=== PATIENT | male | born 1935 | race Caucasian/White ===

== ENCOUNTER 2018-07-02 10:41 | Observation (INO) | payer MEDICARE, OTHER ==
[~2018-07-02] VITALS: Ht 177.8 cm; Wt 82.6 kg
[~2018-07-02 10:41] MED LIST: CELE200 PO; DOCU-116 PO; DOFE250C PO; ESOM40CA54 PO; ESOM40SU PO; FISH1CAP50 PO; LOSA25TA2 PO; METO25TA3 PO; MULT-722 PO; NITR0.4T50 SL; SIMV40TA59 PO
[2018-07-02 11:25] LABS: BASOPHILS % (AUTO) 0.9 % (0.0-5.0); HEMATOCRIT 43.7 % (42-54); LYMPHOCYTES % (AUTO) 33.7 % (21.0-51.0); MEAN CORPUSCULAR HEMOGLOBIN 33.5 pg (27.0-33.0); MEAN CORPUSCULAR HGB CONC 34.6 g/dL (32.0-36.0); MEAN CORPUSCULAR VOLUME 96.7 fL (79-99); MONOCYTES % (AUTO) 9.7 % (3.0-13.0); NEUTROPHILS % (AUTO) 52.7 % (40.0-77.0); PLATELET COUNT (AUTO) 181 K/uL (130-400); RED BLOOD CELL COUNT(AUTO) 4.52 MIL/uL (4.50-6.20); RED CELL DISTRIBUTION WIDTH 13.5 % (11.0-15.5); WHITE BLOOD COUNT (AUTO) 4.6 K/uL (4.8-10.8)
[2018-07-02] MEDS ORDERED: SODIUM CHLORIDE 0.9% 10 ML VIAL IVP PRN (11:30)
[2018-07-02 11:32] LABS: CREATININE 1.2 mg/dL (0.5-1.5); POTASSIUM 4.3 mmol/L (3.5-5.1)
[2018-07-02 11:46] LABS: ALBUMIN 3.6 g/dL (3.5-5.0); BILIRUBIN,TOTAL 0.6 mg/dL (0.2-1.0); MAGNESIUM 1.7 mg/dL (1.80-2.40); THYROID STIMULATING HORMONE 2.72 uIU/mL (0.36-3.74)
[2018-07-02] MEDS ORDERED: ASPIRIN 81MG TAB.CHEW ONE (12:15)
[2018-07-02] MEDS ORDERED: APIXABAN 2.5 MG TABLET PO ONE (12:15)
[2018-07-02] MEDS ORDERED: METOPROLOL TARTRATE 25 MG TAB ONE (12:16)
[2018-07-02] MEDS ORDERED: DILTIAZEM HCL 5 MG/ML 5 ML VIAL IVP ONE (13:00)
[2018-07-02] MEDS ORDERED: DILTIAZEM 125MG+100 ML NS 125 ML IV SCH (13:00)
[2018-07-02] MEDS ORDERED: LOSARTAN 50 MG TABLET ONE (14:36)
[2018-07-02 16:50] VITALS: BP 137/92
[2018-07-02] MEDS ORDERED: SILD25TA PO (17:32)
[2018-07-02] MEDS ORDERED: DIPH25CA7 PO (17:32)
[2018-07-02] MEDS ORDERED: METO-408 PO (17:32)
[2018-07-02] MEDS ORDERED: ESOM40CA54 PO (17:32)
[2018-07-02] MEDS ORDERED: CLOT15C TP (17:32)
[2018-07-02] MEDS ORDERED: MULT-248 PO (17:32)
[2018-07-02] MEDS ORDERED: SIMV40TA5 PO (17:32)
[2018-07-02] MEDS ORDERED: DOFE250C4 PO (17:32)
[2018-07-02] MEDS ORDERED: DOCU100C33 PO (17:32)
[2018-07-02] MEDS ORDERED: LOSA25TA16 PO (17:32)
[2018-07-02] MEDS ORDERED: FLUO40CR TP (17:32)
[2018-07-02] MEDS ORDERED: FISH1CAP49 PO (17:32)
[2018-07-02] MEDS ORDERED: NITR0.4T50 SL (17:32)
[2018-07-02] MEDS ORDERED: APIX5TAB PO (17:32)
[2018-07-02 19:46] VITALS: BP 153/98
[2018-07-02] MEDS ORDERED: CLONIDINE HCL 0.1 MG TABLET PO PRN (20:45)
[2018-07-02] MEDS ORDERED: DEXTROSE 50%-WATER 50 ML DISP.SYRIN IV PRN (20:45)
[2018-07-02] MEDS ORDERED: ACETAMINOPHEN 325 MG TAB PO PRN (20:45)
[2018-07-02] MEDS ORDERED: GLUCAGON 1MG KIT 1 MG ML IM PRN (20:45)
[2018-07-02] MEDS ORDERED: ONDANSETRON HCL 4 MG/2 ML VIAL IVP PRN (20:45)
[2018-07-02] MEDS ORDERED: POTASSIUM CHLORIDE 20 MEQ ERTAB PO PRN (20:45)
[2018-07-02] MEDS ORDERED: POTASSIUM CHLORIDE 10% ELIXIR 20 MEQ/15 ML UDCUP PO PRN (20:45)
[2018-07-02] MEDS ORDERED: POTASSIUM CHLORIDE 20MEQ/100ML 100 ML IV PRN (20:45)
[2018-07-02] MEDS ORDERED: LIDOCAINE HCL-MPF 1% 2ML VIAL IJ PRN (20:45)
[2018-07-02] MEDS ORDERED: DIPHENHYDRAMINE HCL 25 MG CAPSULE PO PRN (20:45)
[2018-07-02] MEDS ORDERED: SIMVASTATIN 20 MG TABLET PO SCH (21:00)
[2018-07-02] MEDS ORDERED: METOPROLOL TARTRATE 25 MG TAB PO SCH (21:00)
[2018-07-02] MEDS: INSULIN R PO SSI SQ SCH (21:00)
[2018-07-02] MEDS: APIXABAN 5 MG TABLET PO SCH (22:05)
[2018-07-02] MEDS: TIKOSYN 250 MCG PO SCH (22:06)
[2018-07-02 23:48] VITALS: BP 148/95
[2018-07-03] MEDS ORDERED: DILTIAZEM HCL 5 MG/ML 10 ML VIAL IV ONE (00:27)
[2018-07-03 03:56] VITALS: BP 111/73
[2018-07-03 04:28] LABS: CARBON DIOXIDE 31 mmol/L (21-32); CHLORIDE 103 mmol/L (101-111); CREATINE KINASE, TOTAL 105 U/L (21-232); CREATININE 1.2 mg/dL (0.5-1.5); GLOMERULAR FILTR. RATE CALC 61 mL/min (>60); GLUCOSE,RANDOM 88 mg/dL (70-105); MYOGLOBIN 62 ng/mL (10-92); POTASSIUM 3.8 mmol/L (3.5-5.1); SODIUM SERUM 138 mmol/L (136-145); TROPONIN I < 0.04 ng/mL (0.00-0.06); UREA NITROGEN, BLOOD 16 mg/dL (7-18)
[2018-07-03] MEDS: INSULIN R PO SSI SQ SCH (06:46)
[2018-07-03 08:16] VITALS: BP 144/104
[2018-07-03] MEDS ORDERED: METOPROLOL TARTRATE 50 MG TAB PO SCH (09:00)
[2018-07-03] MEDS ORDERED: LOSARTAN 50 MG TABLET PO SCH (09:00)
[2018-07-03] MEDS: TIKOSYN 250 MCG PO SCH (09:00)
[2018-07-03] MEDS ORDERED: PNEUMOCOCCAL VACCINE POLYVALENT 0.5 ML/VIAL [PPV] IM ONE (09:00)
[2018-07-03 09:28] VITALS: BP 112/80
[2018-07-03] MEDS: APIXABAN 5 MG TABLET PO SCH (10:18)
[2018-07-03 11:05] VITALS: BP 130/84
[2018-07-03 16:48] VITALS: BP 125/77
[2018-07-03] MEDS ORDERED: PNEUMOCOCCAL VACCINE POLYVALENT 0.5 ML/VIAL [PPV] ONE (17:30)
[2018-07-03] MEDS ORDERED: METO-391 PO (18:09)
== END 2018-07-03 18:48 | disposition home or self-care (01) ==
LOC: EDH 10:41 → INTOOBSV 10:42 → EDHIP 10:42 → 2DH 16:56
PROVIDERS: ADMIT Internal Medicine; ATTEND Internal Medicine
DX: I48.91 Unspecified atrial fibrillation (principal); I10 Essential (primary) hypertension; E11.9 Type 2 diabetes mellitus without complications; E78.5 Hyperlipidemia, unspecified; J44.9 Chronic obstructive pulmonary disease, unspecified; M17.12 Unilateral primary osteoarthritis, left knee; I25.10 Atherosclerotic heart disease of native coronary artery without angina pectoris; Z92.3 Personal history of irradiation; Z95.0 Presence of cardiac pacemaker; Z95.5 Presence of coronary angioplasty implant and graft; Z23 Encounter for immunization
CPT/HCPCS: 36415 ×2; 71045; 80048; 80053; 82550 ×2; 82948; 83735; 83874; 84439; 84443; 84484 ×2; 85025; 90471; 90732; 93005 ×2; 93306; 96374; G0378 ×32; J3490 ×2; Q2038

== ENCOUNTER → 2019-10-01 | Outpatient (CLI) | payer OTHER ==
[~2019-10-01] MED LIST changes: +APIX5TAB PO; -CELE200 PO; +CLOT15C TP; +DIPH25CA53 PO; -DOCU-116 PO; +DOCU100C33 PO; -DOFE250C PO; +DOFE250C4 PO; -ESOM40SU PO; +FISH1CAP49 PO; -FISH1CAP50 PO; +FLUO40CR TP; -LOSA25TA2 PO; +LOSA25TA41 PO; +METO-391 PO; +METO-408 PO; -METO25TA3 PO; +MULT-248 PO; -MULT-722 PO; +REGADENOSON 0.4 MG/5 ML PF SYG IVP SCH; +SILD25TA PO; +SIMV-46 PO; -SIMV40TA59 PO
== END | disposition home or self-care (01) ==
LOC: RAH 08:42
PROVIDERS: ATTEND Internal Medicine Cardiovascular Disease
DX: I25.89 Other forms of chronic ischemic heart disease (principal); I65.22 Occlusion and stenosis of left carotid artery
CPT/HCPCS: 78452; 93017; 96374; A9500 ×2; J2785

== ENCOUNTER → 2021-12-11 | Outpatient (CLI) | payer OTHER ==
[~2021-12-11] MED LIST changes: -REGADENOSON 0.4 MG/5 ML PF SYG IVP SCH
[2021-12-11] MEDS: REGADENOSON 0.4 MG/5 ML PF SYG IVP SCH (12:39)
== END | disposition home or self-care (01) ==
LOC: RAH 08:22
PROVIDERS: ATTEND Internal Medicine Cardiovascular Disease
DX: I10 Essential (primary) hypertension (principal); I20.9 Angina pectoris, unspecified
CPT/HCPCS: 78452; 93017; 96374; A9500 ×2; J2785

== ENCOUNTER 2022-12-16 11:47 | Day surgery (SDC) | payer OTHER ==
[2022-12-16] VITALS (9 sets, daily range): BP systolic 101–181; BP diastolic 20–105
[~2022-12-16] VITALS: Ht 177.8 cm; Wt 78.0 kg
[2022-12-16] MEDS ORDERED: ETOMIDATE 20MG VIAL ONE (13:07)
[2022-12-16] MEDS ORDERED: PROPOFOL 10 MG/ML 20ML VIAL IV ONE ×2 (13:28→13:58)
[2022-12-16] MEDS ORDERED: LIDOCAINE PF 100MG/5ML (2%) SYRINGE 5ML ONE (13:29)
[2022-12-16] MEDS ORDERED: [UNRECOGNIZED DRUG - OTHER] PO (14:03)
[2022-12-16] MEDS ORDERED: SIMV-46 PO (14:03)
[2022-12-16] MEDS ORDERED: TAMS-1 PO (14:03)
[2022-12-16] MEDS ORDERED: [UNRECOGNIZED DRUG - OTHER] IH (14:03)
[2022-12-16] MEDS ORDERED: OMEG-227 PO (14:03)
[2022-12-16] MEDS ORDERED: TADA20TA PO (14:03)
[2022-12-16] MEDS ORDERED: CLOP-31 PO (14:03)
[2022-12-16] MEDS ORDERED: MV-M1CAP26 PO (14:03)
[2022-12-16] MEDS ORDERED: VITA1CAP85 PO (14:03)
[2022-12-16] MEDS ORDERED: AMLO-257 PO (14:03)
[2022-12-16] MEDS ORDERED: MULT-1259 PO (14:03)
[2022-12-16] MEDS ORDERED: PANT40GR PO (14:03)
[2022-12-16] MEDS ORDERED: METO-408 PO (14:03)
[2022-12-16] MEDS ORDERED: VITAMIN D 5000 UNITS PO (14:03)
[2022-12-16] MEDS ORDERED: VITA-348 PO (14:03)
[2022-12-16] MEDS ORDERED: PSYL1PAC PO (14:03)
[2022-12-16] MEDS ORDERED: [UNRECOGNIZED DRUG - MIXTURE] PO (14:03)
[2022-12-16] MEDS ORDERED: [UNRECOGNIZED DRUG - OTHER] PO (14:03)
[2022-12-16] MEDS ORDERED: TUMERIC PO (14:03)
[2022-12-16] MEDS ORDERED: POLY17PO4 PO (14:03)
[2022-12-16] MEDS ORDERED: SIME125C PO (14:03)
[2022-12-16] MEDS ORDERED: APIX5TAB PO (14:03)
[2022-12-16] MEDS ORDERED: ALBU0.63 IH (14:03)
== END 2022-12-16 16:20 | disposition home or self-care (01) ==
LOC: ENDO 11:47
PROVIDERS: ATTEND Internal Medicine Gastroenterology
DX: T18.4XXA Foreign body in colon, initial encounter (principal); Z20.822 Contact with and (suspected) exposure to COVID-19; K92.1 Melena; K64.1 Second degree hemorrhoids; J44.9 Chronic obstructive pulmonary disease, unspecified; I10 Essential (primary) hypertension; E78.5 Hyperlipidemia, unspecified; I25.10 Atherosclerotic heart disease of native coronary artery without angina pectoris; K21.9 Gastro-esophageal reflux disease without esophagitis; Z85.72 Personal history of non-Hodgkin lymphomas; Z85.038 Personal history of other malignant neoplasm of large intestine; Z90.89 Acquired absence of other organs; Z98.890 Other specified postprocedural states; Z79.899 Other long term (current) drug therapy; Z86.010 Personal history of colon polyps; Y83.8 Other surgical procedures as the cause of abnormal reaction of the patient, or of later complication, without mention of misadventure at the time of the procedure
CPT/HCPCS: 87426; 45379; J2001; J2704 ×2; J3490; A4215 ×2; A4223; A7002; A4222; A4221; A4663; A4216; J7030; 45378